=== PATIENT | male | born 1995 | race African-American/Black ===

== ENCOUNTER 2018-12-25 21:13 | Emergency (ER) | payer OTHER ==
[~2018-12-25] VITALS: Ht 180.3 cm; Wt 119.3 kg
[2018-12-25 21:16] VITALS: BP 119/55
[2018-12-25] MEDS ORDERED: DEPAKOTE 250MG250 M1 (21:17)
[2018-12-25] MEDS ORDERED: INVEGA1.5 MG PO (21:17)
[2018-12-25] MEDS ORDERED: DEPAKOTE125 MG (21:18)
== END 2018-12-25 21:57 | disposition home or self-care (01) ==
LOC: ER 21:13
DX: Z48.01 Encounter for change or removal of surgical wound dressing (principal); F31.9 Bipolar disorder, unspecified; F20.9 Schizophrenia, unspecified; Z91.018 Allergy to other foods

== ENCOUNTER 2019-01-02 20:29 | Emergency (ER) | payer OTHER ==
[~2019-01-02] VITALS: Ht 180.3 cm; Wt 119.3 kg
[~2019-01-02 20:29] MED LIST: DEPAKOTE 250MG250 M1; DEPAKOTE125 MG; INVEGA1.5 MG PO
[2019-01-02 20:30] VITALS: BP 111/66
== END 2019-01-02 23:17 | disposition home or self-care (01) ==
LOC: ER 20:29
DX: J02.9 Acute pharyngitis, unspecified (principal); F20.9 Schizophrenia, unspecified; F31.9 Bipolar disorder, unspecified; F17.210 Nicotine dependence, cigarettes, uncomplicated

== ENCOUNTER 2019-01-04 22:33 | Emergency (ER) | payer OTHER ==
[~2019-01-04] VITALS: Ht 182.9 cm; Wt 113.4 kg
[2019-01-04 23:45] VITALS: BP 109/44
== END 2019-01-04 23:45 | disposition home or self-care (01) ==
LOC: ER 22:33
DX: R53.1 Weakness (principal); Z48.01 Encounter for change or removal of surgical wound dressing; F31.9 Bipolar disorder, unspecified; F20.9 Schizophrenia, unspecified; F17.210 Nicotine dependence, cigarettes, uncomplicated; Z59.0 Homelessness; Z91.018 Allergy to other foods